=== PATIENT | female | born 1995 | race Caucasian/White ===

== ENCOUNTER 2021-01-21 14:29 | Outpatient (CLI) | payer OTHER | END 2021-01-21 14:30 | disposition home or self-care (01) | LOC: BICRAD 14:29 | PROVIDERS: ATTEND Internal Medicine | DX: Z02.71 Encounter for disability determination (principal) ==

== ENCOUNTER 2025-02-28 15:05 | Outpatient (CLI) | payer BC | END 2025-02-28 15:06 | disposition home or self-care (01) | LOC: ULT 15:05 | PROVIDERS: ATTEND Family Medicine | DX: E28.2 Polycystic ovarian syndrome (principal) | CPT/HCPCS: 76856 ==